=== PATIENT | male | born 1955 | race Caucasian/White ===

== ENCOUNTER 2016-10-27 02:28 | Observation (INO) | payer OTHER ==
[~2016-10-27] VITALS: Ht 177.8 cm; Wt 101.0 kg
[2016-10-27] VITALS (15 sets, daily range): BP systolic 149–209; BP diastolic 88–134; PULSE 62–80; RESP 14–22; O2SAT 92–99
[~2016-10-27 02:28] MED LIST: ALPR1TAB7 PO; GLBR5T PO; LISI40TA PO; METF1000 PO; METF500T4 PO; METO50TA7 PO; NIFE90TA31 PO; OXYC1TAB24 PO; TADA5TAB2 PO
--- NOTE | 2016-10-27 02:43 | ED.REPORT ---
HPI-Stroke / CVA Oct 27, 2016 ED Provider: Damian Wallis MD A 61 year old male with a history of diabetes mellitus, hyperlipidemia and hypertension presents to the ED complaining of left arm numbness that began just prior to arrival. Last known well was approx. 0200. He was reportedly at work when he began to experience numbness in his lips that began to radiate to his arm. Symptoms have been intermittent since onset. Patient reports similar previous episodes that resulted in a negative stroke workup. Patient has been taking his BP medication as directed but recently changed the time of day the medication was taken. Nursing Notes Stated Complaint: LEFT ARM NUMBNESS Chief Complaint: Stroke Symptoms Nursing Notes Reviewed: Yes Allergies: Coded Allergies: cefuroxime (Verified Allergy, Mild, 05/03/16) chlorthalidone (Verified Allergy, Mild, 05/03/16) clonidine (Verified Allergy, Mild, 05/03/16) fenofibrate (Verified Allergy, Mild, 05/03/16) glimepiride (Verified Allergy, Mild, 05/03/16) simvastatin (Verified Allergy, Mild, 05/03/16) spironolactone (Verified Allergy, Mild, 05/03/16) triamterene (Verified Allergy, Mild, 05/03/16) amlodipine (Verified Allergy, Unknown, leg cramps, 12/13/15) glipizide (Verified Allergy, Unknown, 05/03/16) Uncoded Allergies: SULFA (Allergy, Severe, RASH, 05/15/13) Scheduled Glyburide (Glyburide) 5 Mg Tab 5 MG PO BIDAC (Reported) Lisinopril (Lisinopril) 40 Mg Tablet 40 MG PO BID (Reported) Metformin (Metformin) 500 Mg Tablet 500 MG PO QAM (Reported) Metformin (Glucophage) 1,000 Mg Tablet 1,000 MG PO BID (Reported) Metoprolol Succinate ER (Toprol XL) 50 Mg Tablet 50 MG PO DAILY Nifedipine ER (Nifedipine ER) 90 Mg Tab.er.24 90 MG PO DAILY (Reported) Scheduled PRN Alprazolam (Alprazolam) 1 Mg Tablet 0.5 MG PO HS PRN PRN For Sleep (Reported) oxyCODONE-Acetaminophen 5-325 mg (oxyCODONE-Acetaminophen 5-325 mg) 1 Each Tablet 1-2 TAB PO q6 hours PRN PRN For Pain (Reported) General Time Seen by Provider: 02:40 Chief Complaint Numbness Hx Obtained From: Patient Arrived By: Walk-in Time last known well 0200 Sudden in Onset?: Yes Symptom Duration: Since onset Progression Since Onset: Intermittent Pertinent Negative: Pt denies other symptoms Recent Healthcare: No recent doctor visit, No recent hospitalization Risk Factors )( TPA Administration/Criteria Stroke Thrombolytic Therapy : TPA Administered Intravenously: No, exclusion criteria NIH Stroke Scale Level of Consciousness: Alert and responsive (0) Ask Month & Age: Both questions right (0) Open/Close Eyes/Hand Congressional Aide: Performs both tasks (0) Horizontal EO Movements: None (0) Visual Bar: No visual loss (0) Facial Palsy: Normal symmetry (0) Language Aphasia: No aphasia, normal (0) Dysarthria: No dysarthria, normal (0) Extinction/Inattention: No exctinct/inattent (0) NIHSS Score: 0 Time NIHSS Performed: 02:51 )( CVA Risk Stratification Age >60 Diabetes mellitus Hyperlipidemia Hypertension Risk factors reviewed Past Medical History Past Medical History Diabetes Mellitus Hyperlipidemia Hypertension Past Surgical History None reported. Smoking History Never Smoker Social History Alcohol Use: Denies alcohol use Other Social History: Good social support, Local resident Occupation [employer] Ambulatory Status Independent Review of Systems Constitutional: Denies: Chills, Fever Respiratory: Denies: Shortness of breath GI: Denies: Nausea, Vomiting Neurologic: Reports: Numbness (left arm and lips) Complete sys rev & neg: except as marked. Physical Exam Initial Vital Signs Vital Signs (First) Date Time Temp Pulse Resp B/P Pulse Ox O2 Delivery O2 Flow Rate FiO2 10/27/16 02:35 36.3 78 16 205/106 98 Room Air Initial VS: Reviewed, Vital signs abnormal Extremities: Vascular intact, Neuro intact, No swelling, No tenderness Skin: Warm, Dry, No cyanosis Psychiatric: Mood/affect normal, Behavior normal, Normal thought content General/Constitutional: Awake, Alert, No acute distress, Well appearing, Well developed GENERAL: Overweight Head / Eyes: Atraumatic, Normocephalic, PERRL Neck: Atraumatic, Supple Respiratory / Chest: Atraumatic, Breath sounds NL, Breath sounds = bilat, No respiratory distress Cardiovascular: Heart rate NL, Regular rhythm, Heart sounds NL CARDIO: Hyperensive Neurologic: Oriented X3, Speech NL, No motor deficits, No sensory deficits, CN II - XII intact, Reflexes equal bilat, Cerebellar NL Interpretation & Diagnostics Lab Results Interpretation Result Diagram: 10/27/16 0237 10/27/16 0237 Test 10/27/16 02:37 White Blood Count 7.4th/mm3 (3.8-10.1) Red Blood Count 4.63mil/mm3 (4.40-5.80) Hemoglobin 14.4g/dL (13.8-17.2) Hematocrit 42.3% (41.0-50.0) Mean Corpuscular Volume 91.4fL (81-100) Mean Corpuscular Hemoglobin 31.1pg (27.0-35.0) Mean Corpuscular Hemoglobin Concent 34.0% (32.0-37.0) Red Cell Distribution Width 13.8% (12.3-15.4) Platelet Count 297bil/L (150-400) Neutrophils (%) (Auto) 54.6% (40-74) Lymphocytes (%) (Auto) 34.1% (14-46) Monocytes (%) (Auto) 9.1% (4-12) Eosinophils (%) (Auto) 1.4% (0-5) Basophils (%) (Auto) 0.5% (0-3) Prothrombin Time 9.7sec (8.1-12.5) Prothromb Time International Ratio 0.91ratio Activated Partial Thromboplast Time 25.4sec (22.8-33.0) Sodium Level 138mEq/L (134-144) Potassium Level 3.7mEq/L (3.5-5.2) Chloride Level 98mEq/L (97-108) Carbon Dioxide Level 22mmol/L (18-29) Blood Urea Nitrogen 13mg/dL (8-27) Creatinine 0.72mg/dL (0.76-1.27) Estimat Glomerular Filtration Rate 118mL/min (>59) Glucose Level 105mg/dL (60-99) Calcium Level 9.7mg/dL (8.5-10.1) Total Bilirubin 0.3mg/dL (0.0-1.2) Aspartate Amino Transf (AST/SGOT) 31U/L (0-50) Alanine Aminotransferase (ALT/SGPT) 41U/L (0-44) Alkaline Phosphatase 54U/L (25-160) Troponin T 0.010ug/L (0.0-0.011) Total Protein 7.8g/dL (6.4-8.4) Albumin 4.6g/dL (3.4-5.0) Hold Vasquez Top Tube Received (Received) Lab values outside NL range: no clinical significance. ECG Interpretation ECG Interpretation: Sinus Rhythm Rate 70 Left ventricular hypertrophy Time: 02:45 Interpreted by: ED physician CT Head Interpretation IMPRESSION: Mild involutional changes. Mild patchy low density bilaterally in the deep white matter likely due to chronic ischemic small vessel disease. No acute intracranial abnormality. Study: Head CT no contrast Interpretation / Wet Read by: Interpret - Radiologist ([facility]) Re-Eval/Medical Decision Med Decision/Clinical Course 61-year-old male who had left facial numbness and hand numbness at home. This has resolved. He was also noted to be markedly hypertensive. He has a long history of hypertension which has been difficult to control. 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 He just did the transition to nights and has been having some difficulty with that. Upon arrival in the emergency room he has a dull headache but his neurologic symptoms have resolved. His NIH stroke scale is 0. CT scan was negative for bleed or acute infarction. He does have some old microvascular changes. No atrial fibrillation is noted. His elevated blood pressure did not resolve by the time he returned from CAT scan so he was given IV metoprolol 1 dose without effect. He was then given IV labetalol with normalization of his blood pressure. He will be admitted to the hospitalist service for further evaluation and treatment likely to include MRI and echocardiogram. Condition on admission is improved. Re-Evaluation/Progress #1: Time of Eval: 05:29 Patient Status: Condition improved Re-Evaluation/Progress Note: Pt's numbeness have improved. Headache is present and pt is hypertensive. He is informed of his reassuring CT results. Re-Evaluation/Progress #2: Time of Eval: 07:31 Re-Evaluation/Progress Note: Patient is rechecked. His symptoms are still present and he is offered admission. All questions are addressed. He understands and agrees with the plan. Consultation : Referral / Consult Name: Guanako Mcgrath MD Consulted With: Hospitalist Call Returned at: 07:59 Denture Laboratory Technician: Will see patient, Agrees with eval, Agrees with plan, Accepts admit Counseled Regarding: Diagnosis, Lab results, Need for admission Patient Discharge & Departure Impression: Primary Impression: Hypertensive urgency Additional Impressions: Transient ischemic attack Transient cerebral ischemia type: unspecified Qualified Code: G45.9 - Transient cerebral ischemic attack, unspecified Hypertensive emergency Disposition: ADMITTED TO HOSPITAL Discharge Condition All VS Reviewed: Yes Condition: Stable Referrals: Ceasar Bettencourt MD (PCP) Crit Care Except Billable Proc Time Spent: 30-74 minutes Services Performed: Patient management by me, Time spent at bedside, Reviewing test results, Reviewing imaging, Discussing patient care, Documentation in record, Time with fam/surrogate Critical Care Notes: Hypertensive emergency with acute neurologic deficits requiring. Requiring IV therapy Scribe Attestation Portions of this note were transcribed by Bryan Asencio. I, Dr. Wallis personally performed the history, physical exam and medical decision-making; I reviewed and confirmed the accuracy of the information in the transcribed note. Signed by: Yvan Vázquez, 10/27/16 0759. copies to: Ceasar Bettencourt MD, Damian Snyder MD Oct 27, 2016 02:43 BRYAN ASENCIO Oct 27, 2016 02:49
[2016-10-27 02:45] LABS: BASOPHILS % (AUTO) 0.5 % (0-3); EOSINOPHILS % (AUTO) 1.4 % (0-5); MONOCYTES % (AUTO) 9.1 % (4-12); Mean Corpuscular Hemoglobin 31.1 pg (27.0-35.0); Mean Corpuscular Volume 91.4 fL (81-100); NEUTROPHILS % (AUTO) 54.6 % (40-74); Platelet Count 297 bil/L (150-400)
[2016-10-27] MEDS ORDERED: MeTOProlol 1 mg/mL 5 mL Inj IVPUSH ONE (03:00)
[2016-10-27 03:02] LABS: INR 0.91 ratio
[2016-10-27 03:16] LABS: TROPONIN T 0.01 ug/L (0.0-0.011)
[2016-10-27] MEDS ORDERED: Labetalol 5 mg/mL 4 mL Inj IVPUSH ONE (05:30)
[2016-10-27] MEDS ORDERED: Ondansetron 2 mg/mL 2 mL Inj IVPUSH PRN (08:00)
[2016-10-27] MEDS ORDERED: Labetalol 5 mg/mL 4 mL Inj IVPUSH PRN (08:05)
--- NOTE | 2016-10-27 08:15 | DRSVH ---
PROCEDURE: CT BRAIN (TPA) ([id number]) INDICATIONS: Stroke TECHNIQUE: Noncontrast 4.5 mm thick angled axial sections acquired from the foramen magnum to the vertex, with c oronal reformats. COMPARISON: None. FINDINGS: Image quality: Excellent. CSF spaces: Basal cisterns are patent. No extra-axial fluid collections. Ventricles are normal in size and shape. Brain: No midline shift. No intracranial masses or hemorrhage. So-white matter interface is norm al. Skull and face: Calvarium and visualized facial bones are intact, without suspicious lesions. Sinuses: Mild mucosal thickening noted in the visualized right maxillary sinus. Bony wall thickening noted in the visualized right maxillary sinus. The mastoids are clear. IMPRESSION: 1. No acute intracranial disease process. 2. Findings telephoned to Dr. Wallis on 10/27/16 at 0253 hours. This study fulfills neurological imaging criteria for inclusion or exclusion of acute stroke therapie s based on available published neurological imaging guidelines. Dictated by: Samantha Kay MD, PhD on 10/27/2016 at 8:09 Approved by: Samantha Kay MD, PhD on 10/27/2016 at 8:13
--- NOTE | 2016-10-27 09:45 | NUR ---
Admit Patient admitted to [facility], A/O x3, independent. Denies further numbness, slight headache noted. Oriented to room and unit. Saline lock patent and in place. Will monitor BP and keep him comfortable.
--- NOTE | 2016-10-27 11:05 | DRSVH ---
PROCEDURE: MRI STROKE PROTOCOL ([id number]) Pre- and post-contrast brain MRI, non-contrast brain MR angiogram, pre- and postcontrast neck MR joslyn ogram INDICATIONS: Left facial numbness, resolved TECHNIQUE: Brain: Noncontrast axial T1 spin echo, axial T2 fast spin echo, sagittal and axial FLAIR, coronal T2 fast spin echo, axial gradient echo, axial diffusion and ADC through the brain. After the administr ation of contrast, axial 3D VIBE of the cranial vasculature and brain. Brain MRA: Non-contrast 3-D time of flight MR angiogram, with multiple pyqqagt-zuiuiqbeq-ybgdiuctzm (MIP) reformats performed. Neck MRA: Axial and sagittal TruFISP through the neck. Coronal dynamic MR angiogram during administ ration of contrast in the arterial and venous phases, with 3-dimenstional ptxefgw-snflbxyen-qfjnwmbtu n (MIP) reformats constructed from subtraction images. COMPARISON: [facility], MR, STROKE PROTOCOL (PNL), 12/30/2012, 9:00. [facility], CT, BRAIN (TPA), 10/27/2016, 2:45. [facility], , MR STROKE PROTOCOL, 11/29/2015, 14 :09. FINDINGS: Image quality: Excellent. BRAIN: CSF spaces: Ventricles are normal in size and shape. Basal cisterns are patent. No extra-axial flu id collections. Brain: No intracranial bleeds or mass effects. There is mild cerebral volume loss. There are foci o f T2/FLAIR hyperintensity in periventricular white matter, compatible with chronic small vessel [place] changes. Diffusion weighted images show no acute ischemic insults. Brainstem appears normal. N ormal intravascular flow voids are present. No abnormal intracranial enhancement. Skull and face: Calvarial marrow signal is normal. Orbits appear normal. Sinuses: Mild right maxillary sinus mucosal thickening. No mastoids are clear. BRAIN MR ANGIOGRAM: Anterior circulation: Intracranial internal carotid arteries are normal in size and enhancement. Th e flow within the paired anterior cerebral arteries is normal and symmetric. The flow within the mid dle cerebral arteries is normal and symmetric. The anterior communicating artery is seen. No stenos es, occlusions, or aneurysms. Posterior circulation: The visualized portions of the vertebral arteries demonstrate normal caliber, and join to form a normal appearing basilar artery. The flow within the posterior cerebral arteries is normal and symmetric. No stenoses, occlusions, or aneurysms. NECK MR ANGIOGRAM: Carotids: Great vessels demonstrate a conventional anatomy as they arise from the aortic arch. The origins of the common carotid arteries appear patent. The calibers and courses of both common caroti d arteries are normal. The bifurcation regions appear normal bilaterally. The internal carotid otilio dutch demonstrate normal course and caliber. Posterior circulation: The origins of the vertebral arteries appear patent. More superior portions of both vertebral arteries demonstrate normal course and caliber, and join to form a normal appearing basilar artery. Miscellaneous: Subclavian arteries appear patent. Pre-contrast images through the neck show no soft tissue abnormalities. IMPRESSION: BRAIN MRI: 1. No acute intracranial abnormalities. 2. Mild cerebral volume loss. 3. Foci of T2/FLAIR hyperintensity in the periventricular white matter are compatible with chronic mi crovascular ischemic changes. A differential diagnosis is a demyelinating process such as multiple sc lerosis. Clinical correlation suggested. 4. Mild right maxillary sinus disease. BRAIN MR ANGIOGRAM: Normal anterior and posterior circulations. NECK MR ANGIOGRAM: 1. Normal cardiac arteries bilaterally. 2. Normal vertebral arteries bilaterally. The estimate of stenosis included in the report of the imaging study was calculated using the NASCET method Dictated by: Obie Soriano M.D. on 10/27/2016 at 9:53 Approved by: Obie Soriano M.D. on 10/27/2016 at 10:03
--- NOTE | 2016-10-27 11:06 | PCM.HPMED ---
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 Patient was recently under a lot of stress with ongoing trial, recently changed his shift from day to night. Last night patient was on duty doing regular work, around 2 AM suddenly patient felt left hand numbness, tingling also felt left perioral numbness and tingling. Patient denied any headache, dizziness, chest pain, shortness of breath, palpitation, focal weakness on the arms or legs, blurry vision. Patient took he is baby aspirin which did not necessarily help his symptoms, initially thought it was going away but continued, therefore patient decided to come to the hospital. Patient arrived to the ED was seen by ED physician around 2:40. Episode lasted 30 minutes then resolved. pt stated that he stopped taking nifedipine because he noticed severe hand cramps, used to take it intermittently in the past, pt was sure this hand cramps are from nifedipine. patient tried multiple different meds, didn't particularly recalled any S/E. pt had similar sx in , was admitted with hypertensive urgency. Of note, pt is not checking glc, BP at home , although he has BP cuff. in ED VS hypertensive, 205/106, 78, 16, 36.3, 98% on RA. NIHSS0, CTH neg. patient received [id number], [id number] iv, BP eventually mildly better, 170s. patient also had some photosensitivity, floating in his eyes during the ED , now all resolved. ROS: no fever, chills, chest pain, sob, sick contacts, travel. Review of Systems: Pertinent positives as noted in history of present illness. All other systems were reviewed and are negative Allergies Coded Allergies: cefuroxime (Verified Allergy, Mild, 05/03/16) chlorthalidone (Verified Allergy, Mild, 05/03/16) clonidine (Verified Allergy, Mild, 05/03/16) fenofibrate (Verified Allergy, Mild, 05/03/16) glimepiride (Verified Allergy, Mild, 05/03/16) simvastatin (Verified Allergy, Mild, 05/03/16) spironolactone (Verified Allergy, Mild, 05/03/16) triamterene (Verified Allergy, Mild, 05/03/16) amlodipine (Verified Allergy, Unknown, leg cramps, 12/13/15) glipizide (Verified Allergy, Unknown, 05/03/16) Uncoded Allergies: SULFA (Allergy, Severe, RASH, 05/15/13) Home Medications Scheduled Glyburide (Glyburide) 5 Mg Tab 5 MG PO BIDAC (Reported) Lisinopril (Lisinopril) 40 Mg Tablet 40 MG PO BID (Reported) Metformin (Metformin) 500 Mg Tablet 500 MG PO QAM (Reported) Metformin (Glucophage) 1,000 Mg Tablet 1,000 MG PO BID (Reported) Metoprolol Succinate ER (Toprol XL) 50 Mg Tablet 50 MG PO DAILY Nifedipine ER (Nifedipine ER) 90 Mg Tab.er.24 90 MG PO DAILY (Reported) Scheduled PRN Alprazolam (Alprazolam) 1 Mg Tablet 0.5 MG PO HS PRN PRN For Sleep (Reported) oxyCODONE-Acetaminophen 5-325 mg (oxyCODONE-Acetaminophen 5-325 mg) 1 Each Tablet 1-2 TAB PO q6 hours PRN PRN For Pain (Reported) PMH As described above Surgical History Stromal tumor removal Several sinus surgery Family History Father of stroke at 83 Mother had Parkinson's disease 75 2 brothers as colon cancer Brother has Parkinson's disease Social History Hx Alcohol Use: No Hx Substance Use: No Hx Tobacco Use: No Smoking Status: Never Smoker Additional Information lives with Exam Vital Signs Vital Sign - Last Date Time Temp Pulse Resp B/P Pulse Ox O2 Delivery O2 Flow Rate FiO2 10/27/16 10:07 62 10/27/16 09:54 36.9 15 182/112 95 Room Air Exam NAD, comfortably laying down on the bed no JVD, MMM, no LAD RRR, nl s1, s2 no mrg CTAB, no w,c S,ND,NT,normoactive BS+ warm, no edema, pulses 2/2 Neuro:speech coherent, fluent, AAOx3 gait steady PERRLA, EOMI, symmetric face, no uvulae tongue deviation, able shrug shoulders equally able rotate neck equally on both sides FTN, dysdiadochokinesia intact, romberg negative, no pronator drift motor 5/5 throughout, sensory intact to dull touch Lab and Diagnostics Result Diagram: 10/27/16 0237 10/27/16 0237 X-Rays, CTs and MRIs PROCEDURE: CT BRAIN (TPA) ([id number]) INDICATIONS: Stroke TECHNIQUE: Noncontrast 4.5 mm thick angled axial sections acquired from the foramen magnum to the vertex, with coronal reformats. COMPARISON: None. FINDINGS: Image quality: Excellent. CSF spaces: Basal cisterns are patent. No extra-axial fluid collections. Ventricles are normal in size and shape. Brain: No midline shift. No intracranial masses or hemorrhage. So-white matter interface is normal. Skull and face: Calvarium and visualized facial bones are intact, without suspicious lesions. Sinuses: Mild mucosal thickening noted in the visualized right maxillary sinus. Bony wall thickening noted in the visualized right maxillary sinus. The mastoids are clear. IMPRESSION: 1. No acute intracranial disease process. 2. Findings telephoned to Dr. Wallis on 10/27/16 at 0253 hours. This study fulfills neurological imaging criteria for inclusion or exclusion of acute stroke therapies based on available published neurological imaging guidelines. Dictated by: Samantha Kay MD, PhD on 10/27/2016 at 8:09 Approved by: Samantha Kay MD, PhD on 10/27/2016 at 8:13 Assessment & Plan Acute, active Sudden onset unilateral hand, lip numbness tingling, POA, resolved prior to admission. likely in the setting of hypertensive urgency. No neurologic deficit on exam -Await MR stroke protocol result, if negative for acute stroke, we will control blood pressure -target BP<140 will try to achieve by tomorrow, preferably with oral medicine -Labetalol 20 mg every q6h prn for SBP>220 or DBP>120s for now, -stop Nifedipine, continue [id number] bid, switch metoprolol SR to [id number] bid -Continue aspirin, -lipid panel -neurocheck every 4 hours Chronic, stable Type II diabetes,hold oral hypoglycemic agent, lispro SS, get a1c HLD, not on statin,documented allergy to simvastatin Dispo: Patient is admitted under observation status with expectation that she will be discharged within 24-48 hours, diet:general dvt ppx:LMWH Full code Time spent 65min Guanako Mcgrath MD Oct 27, 2016 11:06 Guanako Mcgrath MD Oct 27, 2016 11:06
[2016-10-27] MEDS ORDERED: Lisinopril 40 Tablet PO ONE (11:35)
--- NOTE | 2016-10-27 13:15 | NUR ---
STUDENT NURSING NOTE Pt BP was 162/102 at 1310
--- NOTE | 2016-10-27 14:40 | NUR ---
Social Work Note: Screen Note Data& Assessment: EMR reviewed. SW met with pt and pt family at bedside to check in and assess for any unmet needs, SW role explained. SW phone number provided on pt white board. Mark Pfeiffer is a 61 year old male under observation for hypertensive emergency beginning on 10/27/2016. Pt has [employer] insurance coverage and sees Ceasar Bettencourt MD for primary care. Pt lives in [place] with his family and is independent at baseline. Pt and pt deny any other needs. Pt family to transport pt home when medically ready. No other discharge needs identified at this time. Plan: Anticipated discharge home via POV when medically ready. Pt and pt family deny any other needs. No other discharge needs identified. SW to continue to follow if any needs arise. RADHA Mckenzie
--- NOTE | 2016-10-27 19:01 | DRSVH ---
[facility] [address] [place] [address] Echocardiogram Report Name: SOHAN HOLT JStudy Date: 10/27/2016 Hospital Exam Location: [facility] Gender: Male : 1955 Age: 61 yrs BP: 171/94 m mHg Reason For Study: TIA Performed By: Rhona Ibarra Referring Physician: HOSPITALIST [facility] Interpretation Summary 1. Normal left ventricular size, wall thickness and systolic function with an estimated EF of 60-65% 2. Normal right ventricular size and systolic function. 3. No evidence for valvular pathology 4. Possible interatrial shunting (by contrast study) with Valsalva Procedure: A two-dimensional transthoracic echocardiogram with color flow and Doppler was performed. The study quality was technically adequate. There is no prior echocardiogram noted for this patient. The patient was in normal sinus rhythm during the exam. Left Ventricle: The left ventricle is normal in size. There is borderline proximal septal thickening noted. The ejection fraction is estimated to be 60 -65%. No obvious wall motion abnormalities. Right Ventricle: The right ventricle is normal in size and function. The right ventricular systolic function is normal. Atria: The left atrial size is normal. Right atrial size is normal. Possible interatrial shunting with saline contrast and Valsalva. Mitral Valve: The mitral valve is normal in structure and function. There is no mitral regurgitation noted. Aortic Valve: The aortic valve opens well. The aortic valve is trileaflet. No aortic regurgitation is present. Tricuspid Valve: The tricuspid valve leaflets are thin and pliable. No tricuspid regurgitation. Pulmonary artery pressures cannot be estimated because of the lack of a measurable TR jet velocity. Pulmonic Valve: The pulmonic valve is normal in structure and function. The pulmonic valve is not well seen, but is grossly normal. There is no pulmonic valvular regurgitation. Great Vessels: The aortic root is normal size. The ascending aorta is mildly enlarged. The diameter of the ascending aorta is 3.75 cm. The IVC is dilated (diameter is greater than 2.1 cm) yet it collapses greater than 50% with a sniff. This suggests a right atrial pressure of 8 mm Hg. Pericardium/ Pleura There is no pericardial effusion. There is no pleural effusion. MMode/2D Measurements & Calculations LVIDd: 5.1 cm LA dimension RA long axis Ao root diam: 3.6 cm LVIDs: 2.5 cm Aortic Jxn: 3.0 cm FS: 51.6 % LA A2 area RA area asc Aorta Diam: 3.8 cm IVSd: 1.1 cm : 12.3 cm Ao Arch Diam (Prox LVPWd: 1.0 cm LA A4 area RA vol: 27.3 ml Trans): 3.1 cm RVDd major : 5.6 cm LA length (vol) LA vol: 69.4 ml IVC diam: 2.1 cm RVD1 (basal) RVD2 (mid): 3.0 cm Doppler Measurements & Calculations Ao V2 max: 177.5 cm/secMV E max el MV E/A: 0.92 PA V2 max Ao max P.6 mmHg : 95.5 cm/sec Med Peak E' El : 88.2 cm/sec Ao mean P.2 mmHg MV A max el PA mean PG : 103.7 cm/sec E/E' med: 16.7 MV P1/2t: 86.7 msecLat Peak E' El PA Accel Time : 0.15 sec E/E' lat: 13.8 E/e' average Pulm A Revs Dur MV A dur: 0.15 sec MV dec time: 0.29 sec MV P1/2t max el Ao V2 mean PA V2 mean : 112.8 cm/sec : 58.5 cm/sec MVA(P1/2t): 2.5 cm2Ao V2 VTI: 37.4 cm Rama ROGERS A Dur: -0.03 msec Reading Physician:07:00 PM
[2016-10-27] MEDS: Lisinopril 40 Tablet PO SCH (20:20)
[2016-10-28 03:10] VITALS: BP 156/92; PULSE 66
[2016-10-28 05:17] VITALS: BP 165/90; PULSE 66
--- NOTE | 2016-10-28 05:22 | NUR ---
Blood Pressure Assumed pt care at 1900, systolic Bp's ranged from 150-200 tonight (see vitals), pt remains asymptomatic, NVS checks q4 within normal limits, on continuous tele, call light in reach at all times.
[2016-10-28 06:00] VITALS: PULSE 66
[2016-10-28] MEDS ORDERED: LABE200T PO (07:30)
[2016-10-28] MEDS ORDERED: ASPI81TA3 PO (07:30)
[2016-10-28] MEDS: Lisinopril 40 Tablet PO SCH (08:23)
--- NOTE | 2016-10-28 09:37 | PCM.DIMED ---
Discharge Instructions Date of Service Oct 28, 2016 Dates of Hospitalization Oct 27, 2016 at 08:01 Discharge Diagnosis Discharge Diagnosis Hypertensive urgency uncontrolled HTN, DM Medication Instructions Additional med instructions Please note that your blood pressure regimen was changed Please stop taking Nifedipine given your cramps of your hands Pleas stop taking Metoprolol SR, instead please continue Labetalol 300mg twice a day Please continue [id number] twice a day Please note that aspirin was also recommended 81mg daily to prevent stroke, heart attack. Diet Discharge Diet: Heart Healthy, Diabetic Activity Discharge Activity: No restrictions Call your provider Call your provider for: Chest pain Patient Instructions Patient Instructions You were hospitalized with concern for stroke, workups didn't show any signs of stroke. It's most likely happened in the setting of high blood pressure. Please follow new BP regimen as above, check your blood pressure at the same time everyday, bring the log to your doctor. Please note that your sugar is also not controlled, continue oral agents, you may need more oral agents or insulin in the future Follow-up Provider: Ceasar Bettencourt MD Follow-up with PCP in: 2 weeks Guanako Mcgrath MD Oct 28, 2016 09:37
[2016-10-28 09:45] VITALS: BP 166/99; PULSE 64
[2016-10-28 09:58] VITALS: PULSE 76
--- NOTE | 2016-10-28 11:45 | NUR ---
Discharge Patient discharge to home via POV, accompanied by his . Ambulated in the hallway this morning, denies any further discomfort. Discharge notes, hard copy of prescription and instructions given and well understood by patient. All personal belongings taken home with him.
--- NOTE | 2016-10-28 13:54 | PCM.DC.MED ---
Discharge Summary Date of Service Oct 28, 2016 Dates of Hospitalization Date of Hospital Admission Oct 27, 2016 at 08:01 Date of Discharge: Oct 28, 2016 Providers: Admitting Physician: Guanako Barnes MD Primary Care Physician: Ceasar Bettencourt MD Attending Physician: Guanako Barnes MD Diagnosis at Time of Discharge Diagnosis at Time of Discharge Hypertensive urgency uncontrolled HTN uncontrolled DM Procedures XRay, CTs & MRIs PROCEDURE: CT BRAIN (TPA) ([id number]) INDICATIONS: Stroke TECHNIQUE: Noncontrast 4.5 mm thick angled axial sections acquired from the foramen magnum to the vertex, with coronal reformats. COMPARISON: None. FINDINGS: Image quality: Excellent. CSF spaces: Basal cisterns are patent. No extra-axial fluid collections. Ventricles are normal in size and shape. Brain: No midline shift. No intracranial masses or hemorrhage. So-white matter interface is normal. Skull and face: Calvarium and visualized facial bones are intact, without suspicious lesions. Sinuses: Mild mucosal thickening noted in the visualized right maxillary sinus. Bony wall thickening noted in the visualized right maxillary sinus. The mastoids are clear. IMPRESSION: 1. No acute intracranial disease process. 2. Findings telephoned to Dr. Wallis on 10/27/16 at 0253 hours. This study fulfills neurological imaging criteria for inclusion or exclusion of acute stroke therapies based on available published neurological imaging guidelines. Dictated by: Samantha Kay MD, PhD on 10/27/2016 at 8:09 Approved by: Samantha Kay MD, PhD on 10/27/2016 at 8:13 Cardiac Echo Impression Echocardiogram Report Name: SOHAN HOLT JStudy Date: 10/27/2016 [facility] Exam Location: [facility] Gender: Male : 1955 Age: 61 yrs BP: 171/94 m mHg Reason For Study: TIA Performed By: Rhona Ibarra Referring Physician: HOSPITALIST [facility] Interpretation Summary 1. Normal left ventricular size, wall thickness and systolic function with an estimated EF of 60-65% 2. Normal right ventricular size and systolic function. 3. No evidence for valvular pathology 4. Possible interatrial shunting (by contrast study) with Valsalva Brief History HPI on 10/27 61-year-old male with history of hypertension, hyperlipidemia, diabetes presented with acute onset left hand numbness and tingling, left perioral numbness and tingling Patient is local police dispatcher. Patient was recently under a lot of stress with ongoing trial, recently changed his shift from day to night. Last night patient was on duty doing regular work, around 2 AM suddenly patient felt left hand numbness, tingling also felt left perioral numbness and tingling. Patient denied any headache, dizziness, chest pain, shortness of breath, palpitation, focal weakness on the arms or legs, blurry vision. Patient took he is baby aspirin which did not necessarily help his symptoms, initially thought it was going away but continued, therefore patient decided to come to the hospital. Patient arrived to the ED was seen by ED physician around 2:40. Episode lasted 30 minutes then resolved. pt stated that he stopped taking nifedipine because he noticed severe hand cramps, used to take it intermittently in the past, pt was sure this hand cramps are from nifedipine. patient tried multiple different meds, didn't particularly recalled any S/E. pt had similar sx in , was admitted with hypertensive urgency. Of note, pt is not checking glc, BP at home , although he has BP cuff. in ED VS hypertensive, 205/106, 78, 16, 36.3, 98% on RA. NIHSS0, CTH neg. patient received [id number], [id number] iv, BP eventually mildly better, 170s. patient also had some photosensitivity, floating in his eyes during the ED , now all resolved. ROS: no fever, chills, chest pain, sob, sick contacts, travel. Hospital Course Acute dx Sudden onset unilateral hand, lip numbness tingling, it resolved prior to admission. likely in the setting of hypertensive urgency. No neurologic deficit on exam. CTH showed no acute findings. MR stroke protocol also no vascular pathology, signs of ischemic stroke. symptoms didn't recur. Given patient week long being of on nifedipine, presentation was suggestive of hypertensive urgency , BP on admission was >200s, eventually controlled to 160s. Given patient's extensive listed allergy to bp meds, it was limited which agent to try. Metoprolol SR was switched to labetalol 300mg bid, nifedipine was stopped as pt would not likely take it again. Lisinopril 40mg bid was continued. Patient was asked to follow up with PCP for further adjustment of labetalol with monitoring of BP with this regimen after d/c. patient was also recommended to continue aspirin. Patient refer his sx of allergy as "muscles cramps" to all listed medicine, which seemed little old. LDL level at least was close to [id number] w/o statin. Chronic dx Type II diabetes, a1c was 8.2, pt was encouraged to continue home OHAs, addressed importance of glc control extensively. HLD, not on statin,documented allergy to simvastatin Exam Vital Signs (Last) Date Time Temp Pulse Resp B/P Pulse Ox O2 Delivery O2 Flow Rate FiO2 10/28/16 09:58 76 10/28/16 09:45 166/99 10/27/16 21:45 16 10/27/16 20:20 37.0 94 Room Air Exam NAD, comfortably laying down on the bed no JVD, MMM, no LAD RRR, nl s1, s2 no mrg CTAB, no w,c S,ND,NT,normoactive BS+ warm, no edema, pulses 2/2 Test 10/27/16 02:37 10/27/16 03:37 White Blood Count 7.4th/mm3 (3.8-10.1) Red Blood Count 4.63mil/mm3 (4.40-5.80) Hemoglobin 14.4g/dL (13.8-17.2) Hematocrit 42.3% (41.0-50.0) Mean Corpuscular Volume 91.4fL (81-100) Mean Corpuscular Hemoglobin 31.1pg (27.0-35.0) Mean Corpuscular Hemoglobin Concent 34.0% (32.0-37.0) Red Cell Distribution Width 13.8% (12.3-15.4) Platelet Count 297bil/L (150-400) Neutrophils (%) (Auto) 54.6% (40-74) Lymphocytes (%) (Auto) 34.1% (14-46) Monocytes (%) (Auto) 9.1% (4-12) Eosinophils (%) (Auto) 1.4% (0-5) Basophils (%) (Auto) 0.5% (0-3) Prothrombin Time 9.7sec (8.1-12.5) Prothromb Time International Ratio 0.91ratio Activated Partial Thromboplast Time 25.4sec (22.8-33.0) Sodium Level 138mEq/L (134-144) Potassium Level 3.7mEq/L (3.5-5.2) Chloride Level 98mEq/L (97-108) Carbon Dioxide Level 22mmol/L (18-29) Blood Urea Nitrogen 13mg/dL (8-27) Creatinine 0.72mg/dL (0.76-1.27) Estimat Glomerular Filtration Rate 118mL/min (>59) Glucose Level 105mg/dL (60-99) Calcium Level 9.7mg/dL (8.5-10.1) Total Bilirubin 0.3mg/dL (0.0-1.2) Aspartate Amino Transf (AST/SGOT) 31U/L (0-50) Alanine Aminotransferase (ALT/SGPT) 41U/L (0-44) Alkaline Phosphatase 54U/L (25-160) Troponin T 0.010ug/L (0.0-0.011) Total Protein 7.8g/dL (6.4-8.4) Albumin 4.6g/dL (3.4-5.0) Hold Vasquez Top Tube Received (Received) Hemoglobin A1c 8.2% (4.8-5.6) Triglycerides Level 486mg/dL (0-149) Cholesterol Level 224mg/dL (100-199) LDL Cholesterol, Calculated 89.800mg/dL (0-99) VLDL Cholesterol 97.200mg/dL HDL Cholesterol 37mg/dL (>39) Cholesterol/HDL Ratio 6.05 (0.0-4.4) Discharge Medications Discharge Medications Aspirin Chew (Aspirin Chew) 81 Mg Chew 81 MG PO DAILY Prescribed by: GUANAKO BARNES MD Glyburide (Glyburide) 5 Mg Tab 5 MG PO BIDAC (Reported) Labetalol (Labetalol) 200 Mg Tablet 300 MG PO BID Prescribed by: GUANAKO BARNES MD Lisinopril (Lisinopril) 40 Mg Tablet 40 MG PO BID (Reported) Metformin (Glucophage) 1,000 Mg Tablet 1,000 MG PO BID (Reported) As needed Alprazolam (Alprazolam) 1 Mg Tablet 0.5 MG PO HS PRN PRN For Sleep (Reported) oxyCODONE-Acetaminophen 5-325 mg (oxyCODONE-Acetaminophen 5-325 mg) 1 Each Tablet 1-2 TAB PO q6 hours PRN PRN For Pain (Reported) Additional med instructions Please note that your blood pressure regimen was changed Please stop taking Nifedipine given your cramps of your hands Pleas stop taking Metoprolol SR, instead please continue Labetalol 300mg twice a day Please continue [id number] twice a day Please note that aspirin was also recommended 81mg daily to prevent stroke, heart attack. Followup Plan Disposition: home Discharge Diet: Heart Healthy, Diabetic Discharge Activity: No restrictions Patient Instructions You were hospitalized with concern for stroke, workups didn't show any signs of stroke. It's most likely happened in the setting of high blood pressure. Please follow new BP regimen as above, check your blood pressure at the same time everyday, bring the log to your doctor. Please note that your sugar is also not controlled, continue oral agents, you may need more oral agents or insulin in the future Follow-up Provider: Ceasar Bettencourt MD Follow-up with PCP in: 2 weeks Time spent 65min Guanako Barnes MD Oct 28, 2016 13:54
== END 2016-10-28 11:45 | disposition home or self-care (01) ==
LOC: SED 02:28 → MOC 08:01
PROVIDERS: ADMIT Internal Medicine; ATTEND Internal Medicine
DX: I16.0 Hypertensive urgency (principal); I10 Essential (primary) hypertension; E11.65 Type 2 diabetes mellitus with hyperglycemia; Z79.84 Long term (current) use of oral hypoglycemic drugs; E78.2 Mixed hyperlipidemia
CPT/HCPCS: 36415; 70450; 70549; 70553; 80053; 80061; 82948; 83036; 84484; 85025; 85610; 85730; 93005; 96374; 96375; 99291; A9585; C8929; G0378; J1650

== ENCOUNTER 2016-11-08 02:43 | Emergency (ER) | payer OTHER ==
[~2016-11-08] VITALS: Ht 177.8 cm; Wt 98.6 kg
[~2016-11-08 02:43] MED LIST changes: +ASPI81TA3 PO; +LABE200T PO; -METF500T4 PO; -METO50TA7 PO; -NIFE90TA31 PO; -TADA5TAB2 PO
[2016-11-08 02:47] VITALS: BP 173/110; PULSE 83; RESP 16; O2SAT 96
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
--- NOTE | 2016-11-08 08:15 | DRSVH ---
PROCEDURE: CT HAND LEFT WITHOUT CONTRAST ([id number]) INDICATIONS: r/o fracture, point tender at base of 4th MC TECHNIQUE: Noncontrast 1 mm axial sections acquired through the carpal bones, with coronal and sagittal reformat s. For radiation dose reduction, the following was used: automated exposure control, adjustment of mA and/or kV according to patient size. COMPARISON: [facility], CR, XR HAND 3VW LT, 11/08/2016, 2:53. FINDINGS: Image quality: Excellent. Bones: Small, slightly displaced avulsion fracture involving the radial margin of the base of the fif th metacarpal is noted. No additional fractures identified. No dislocation identified. Soft tissues: Mild soft tissue swelling noted. IMPRESSION: Slightly displaced fracture involving the radial aspect of the base of the fifth metacarp al. Dictated by: Samantha Kay MD, PhD on 11/08/2016 at 8:12 Approved by: Samantha Kay MD, PhD on 11/08/2016 at 8:14
--- NOTE | 2016-11-08 08:45 | DRSVH ---
PROCEDURE: X-RAY LEFT HAND, MINIMUM THREE VIEWS ([id number]) INDICATIONS: fall TECHNIQUE: 3 views of the hand(s) acquired. COMPARISON: [facility], CT, CT HAND LT WO CON, 11/08/2016, 3:46. FINDINGS: Bones: A very subtle fracture is noted involving the radial base of the 5th metacarpal, which is not well-seen. No additional fractures are evident. There is no dislocation. Carpal bones are normally aligned. No suspicious bony lesions. Mild degenerative changes are noted involving the small joint s (metacarpophalangeal and interphalangeal) of the left hand. There are mild to moderate degenerativ e changes noted involving the basal joint of the thumb. Mild ulna minus variance is present. Soft tissues: No suspicious soft tissue calcifications. IMPRESSION: 1. Small intra-articular avulsion fracture involving the radial base of the 5th metacarpal. 2. Mild to moderate degenerative changes of the left hand. Dictated by: Ras Cr M.D. on 11/08/2016 at 8:41 Approved by: Ras Cr M.D. on 11/08/2016 at 8:43
== END 2016-11-08 04:51 | disposition home or self-care (01) ==
LOC: SED 02:43
DX: S62.347A Nondisplaced fracture of base of fifth metacarpal bone, left hand, initial encounter for closed fracture (principal); W18.39XA Other fall on same level, initial encounter; Y93.89 Activity, other specified; Y92.480 Sidewalk as the place of occurrence of the external cause; Y99.0 Civilian activity done for income or pay; E11.9 Type 2 diabetes mellitus without complications; I10 Essential (primary) hypertension; E78.5 Hyperlipidemia, unspecified; Z79.82 Long term (current) use of aspirin; Z79.84 Long term (current) use of oral hypoglycemic drugs; Z88.2 Allergy status to sulfonamides; Z88.1 Allergy status to other antibiotic agents; Z88.8 Allergy status to other drugs, medicaments and biological substances